=== PATIENT | female | born 1995 | race African-American/Black ===

== ENCOUNTER 2022-12-07 10:22 | Emergency (ER) | payer OTHER ==
[~2022-12-07] VITALS: Ht 165.1 cm; Wt 47.7 kg
[2022-12-07 10:48] VITALS: TEMP 98.7
[2022-12-07] MEDS ORDERED: LIDOCAINE 5% TRANSDERMAL PATCH TD ONE (12:30)
[2022-12-07] MEDS ORDERED: IBUPROFEN 400 MG TABLET PO ONE (12:30)
[2022-12-07 13:38] LABS: APPEARANCE,URINE TURBID (CLEAR); BILIRUBIN,URINE NEGATIVE (NEGATIVE); COLOR,URINE YELLOW (YELLOW); GLUCOSE, URINE (UA) NEGATIVE (NEGATIVE); KETONES,URINE NEGATIVE (NEGATIVE); LEUKOCYTE ESTERASE ,URINE LARGE (NEGATIVE); NITRATE,URINE POSITIVE (NEGATIVE); OCCULT BLOOD,URINE TRACE (NEGATIVE); PROTEIN,URINE 30-70 mg/dL (NEGATIVE); SPECIFIC GRAVITIY, URINE 1.024 (1.003-1.030)
[2022-12-07 13:46] LABS: BACTERIA,URINE Many /HPF (None Seen); RBC,URINE 0-2 /HPF (0-2); SQUAMOUS EPITHELIAL CELL,UR Few /LPF (None Seen); WBC,URINE 26-50 /HPF (0-5)
[2022-12-07] MEDS ORDERED: CEPH-558 PO (14:05)
[2022-12-07 14:20] VITALS: BP 114/62; PULSE 73; RESP 18
== END 2022-12-07 14:39 | disposition home or self-care (01) ==
LOC: EMS 10:23
DX: N39.0 Urinary tract infection, site not specified (principal); M54.50 Low back pain, unspecified; V98.8XXA Other specified transport accidents, initial encounter; Y93.89 Activity, other specified; Y92.89 Other specified places as the place of occurrence of the external cause; Y99.8 Other external cause status
CPT/HCPCS: 72072; 72100; 81001; 84703; 87086; 87186; 99284; 99285; Z7502; Z7610